=== PATIENT | female | born 1970 | race American Indian/Alaskan Native ===

== ENCOUNTER 2017-03-31 21:06 | Inpatient (IN) | payer OTHER ==
[2017-03-31 22:01] LABS: Mean Corpuscular HGB Conc 26 % (30-34); Platelet Count 553 K/mm3 (140-440); White Blood Count 7.6 K/mm3 (4.5-11.0)
[2017-03-31 22:21] LABS: Hemoglobin 5.2 gm/dl (10.1-14.3); Mean Corpuscular Hemoglobin 17 pg (28-32); Mean Corpuscular Volume 65 fl (79-97)
[2017-03-31 22:22] LABS: Red Cell Distribution Width > 40.0 % (13.2-15.2)
[2017-03-31 22:27] LABS: Anion Gap 17 mmol/L; BUN/Creatinine Ratio 16.66; Blood Urea Nitrogen 10 mg/dL (7-17); Calcium 8.4 mg/dL (8.4-10.2); Carbon Dioxide 23 mmol/L (22-30); Chloride 100.8 mmol/L (98-107); Glucose 97 mg/dL (65-100); Potassium 4.1 mmol/L (3.6-5.0); Sodium 137 mmol/L (137-145)
[2017-03-31 22:47] LABS: Bilirubin,Urine NEG (Negative); Blood,Urine NEG (Negative); Ketones,Urine NEG (Negative); Leukocyte Esterase,Urine NEG (Negative); Mucus,Urine FEW /HPF; Nitrite,Urine NEG (Negative); Protein,Urine <15 mg/dL mg/dL (Negative); Urobilinogen,Urine < 2.0 mg/dL (<2.0)
[2017-03-31 23:14] LABS: Basophils % (Manual) 0 % (0.0-1.8); Blastocytes % (Manual) 0 %; Eosinophils % (Manual) 0 % (0.0-4.3)
[2017-03-31 23:19] LABS: Anisocytosis 2+; Elliptocytes 1+; Microcytosis 2+; Polychromasia 1+; Tear Drop Cells Few
[2017-03-31 23:20] LABS: Diff Status Complete; Large Platelets 1+; Platelet Estimate Consistent w Auto
[2017-04-01] MEDS ORDERED: TYLENOL PO ONE (05:44)
[2017-04-01] MEDS ORDERED: TYLENOL ONE (05:44)
[2017-04-01] MEDS ORDERED: NACL 0.9% 500 ML 500 ML IV ONE ×2 (07:46→11:00)
--- NOTE | 2017-04-01 07:57 | Emergency Department Report ---
HPI - General Chief Complaint: Chest Pain Time Seen by Provider: 04/01/17 07:45 - HPI HPI: This is a 46-year-old -[place] female who presents to the emergency department with a complaint of a one-week history of a headache and some chest discomfort. The headache has been posterior with some radiation down towards the neck. It will happen for 1-2 days at a time and then will go away and then returned. She complains of some nonspecific dizziness and some occasional blurry vision. Otherwise she denies any numbness, paresthesias, slurred speech or any neurological deficits. The chest discomfort as a sore feeling, midsternal, without any radiation. She says that sometimes she will "rub out the pain." She has been taking a moderate amount of BC powder for her symptoms without much relief. She does not have any diagnosed past medical history. She does not have a primary care doctor. No recent travel or sick contacts at home. Patient denies any significant bleeding but does say that she started her menstrual cycle last Saturday but it is not a large amount of blood or a prolonged amount of time. ED Past Medical Hx - Past Medical History Previous Medical History?: No - Surgical History Past Surgical History?: No - Social History Smoking Status: Current Every Day Smoker Substance Use Type: Alcohol - Medications Home Medications: Home Medications Medication Instructions Recorded Confirmed Last Taken Type No Known Home Medications [No 04/01/17 04/01/17 Unknown History Reported Home Medications] ED Review of Systems ROS: Stated complaint: CP/YOST/AIMEE/VOMITING/BODY PAINS Other details as noted in HPI Comment: All other systems reviewed and negative Constitutional: denies: chills, fever Eyes: vision change. denies: eye pain ENT: denies: ear pain, throat pain Respiratory: denies: cough, shortness of breath, wheezing Cardiovascular: chest pain. denies: palpitations Gastrointestinal: denies: nausea, vomiting Genitourinary: denies: dysuria, discharge Musculoskeletal: denies: back pain, joint swelling, arthralgia Skin: denies: rash, lesions Neurological: headache. denies: weakness, numbness Physical Exam - Physical Exam Vital Signs: Vital Signs 03/31/17 04/01/17 04/01/17 21:43 05:40 05:46 Temperature 98.4 F 97.6 F Pulse Rate 89 70 Respiratory 18 18 18 Rate Blood Pressure 141/98 138/94 O2 Sat by Pulse 100 100 Oximetry Physical Exam: GENERAL: The patient is well-developed well-nourished. HEENT: Normocephalic. Atraumatic. Extraocular motions are intact. Patient has moist mucous membranes. Pupils equal reactive to light bilaterally. NECK: Supple. Trachea is midline. CHEST/LUNGS: Clear to auscultation. There is no respiratory distress noted. There is some reproducible tenderness to palpation to the chest wall. HEART/CARDIOVASCULAR: Regular. There is no tachycardia. There is no gallop rub or murmur. ABDOMEN: Abdomen is soft, nontender. Patient has normal bowel sounds. There is no abdominal distention. SKIN: Skin is warm and dry. NEURO: The patient is awake, alert, and oriented. The patient is cooperative. The patient has no focal neurologic deficits. The patient has normal speech. MUSCULOSKELETAL: There is no tenderness or deformity. There is no limitation range of motion. There is no evidence of acute injury. ED Course Vital Signs 03/31/17 04/01/17 04/01/17 21:43 05:40 05:46 Temperature 98.4 F 97.6 F Pulse Rate 89 70 Respiratory 18 18 18 Rate Blood Pressure 141/98 138/94 O2 Sat by Pulse 100 100 Oximetry ED Medical Decision Making - Lab Data Result diagrams: 03/31/17 21:52 03/31/17 21:52 - EKG Data -: EKG Interpreted by Me EKG shows normal: sinus rhythm, axis, intervals, QRS complexes (Q waves to the septal leads), ST-T waves Rate: normal - EKG Data When compared to previous EKG there are: previous EKG unavailable Interpretation: other (Q waves to the septal leads) - Radiology Data Radiology results: report reviewed, image reviewed interpreted by me: Chest x-ray did not show any acute process. Heart is normal shape and size. No effusions. No pneumothorax. No signs of pneumonia seen. CT of the head does not show any acute process including no hemorrhage, mass, shift, diffuse edema or skull fracture. - Medical Decision Making 46-year-old female presents with some one-week history of posterior headache as well as some chest wall discomfort. While the patient denies any past medical history she presents with a hemoglobin of 5.2. A CT of the head was done secondary to a family history of aneurysm and the patient's one-week history of headache but there was no bleed, shift, mass, ischemia or any acute process. EKG is normal without ST elevation IN, dysrhythmia or ischemia. First troponin negative. Patient says that she is on her menstrual cycle but it is not a heavy bleed and there is no other bleeding. 2 units of packed red blood cells were ordered for transfusion. Patient appears to be having some symptomatic anemia. She will be admitted to the hospital for further evaluation and treatment and has been accepted for admission by the hospitalist, Dr. olmos. - Differential Diagnosis subarachnoid, tension headache, migraine, IN, symptomatic anemia Critical Care Time: No Critical care attestation.: If time is entered above; I have spent that time in minutes in the direct care of this critically ill patient, excluding procedure time. ED Disposition Clinical Impression: Symptomatic anemia Headache Qualifiers: Headache type: unspecified Headache chronicity pattern: unspecified pattern Intractability: not intractable Qualified Code(s): R51 - Headache Chest pain Qualifiers: Chest pain type: unspecified Qualified Code(s): R07.9 - Chest pain, unspecified Anemia Qualifiers: Anemia type: unspecified type Qualified Code(s): D64.9 - Anemia, unspecified Disposition: OP ADMITTED IP TO THIS HOSP Is pt being admited?: Yes Does the pt Need Aspirin: No Condition: Stable Instructions: Chest Pain (ED) Referrals: PRIMARY CARE, [Primary Care Provider] - 3-5 Days Time of Disposition: 11:01
--- NOTE | 2017-04-01 08:14 | Admit Criteria Form ---
Admission Criteria Documentation: ANEMIA, IRON DEFICIENCY OR UNSPECIFIED Clinical Indications for Inpatient Care (Place 'X' for any and all applicable criteria): Admission is indicated for ANY ONE of the following(1)(2)(3)(4)(5)(6)(7): [X] I. Inpatient admission required rather than observation care (Also use Anemia, Iron Deficiency or Unspecified: Observation Care guideline as appropriate) because of ANY ONE of the following: [] a) Hemodynamic instability that is severe or persistent [] b) Active bleeding that cannot be rapidly controlled [X] c) CVS symptoms (i.e., dyspnea, chest pain, heart failure) that are severe or persistent [] d) Neurologic symptoms (i.e., cognitive impairment, recurrent syncope or near syncope) that are severe or persistent [] e) Cardiac arrhythmias of immediate concern [] f) Acute peripheral ischemia (e.g., pulseless, cool, mottled, or cyanotic extremity) [] g) High-risk low platelet count [] h) Acute renal failure [] i) Ongoing transfusion for blood loss (greater than 2 units) [] j) IV fluid to replace significant ongoing (eg, >24 hours) losses (> 3 L/m2 per day) [] k) Pulmonary artery catheter monitoring [] l) Supplemental oxygen or respiratory treatments for over 24 hours that are performable only in acute inpatient setting [] m) Immediate inpatient surgery [] n) Other condition, treatment or monitoring requiring inpatient admission [] II Active massive hemorrhage [] III. Active hemolysis with rapidly progressive anemia [A](6) Extended stay beyond goal length of stay may be needed for (17)(18) []a) Diagnosed cause of anemia requiring longer hospitalization (eg, active GI bleeding, immune hemolysis requiring electrophoresis, complications of malignancy requiring acute care []b) Continued emergent anemia indicators (23) []c) Transfusion reactions []d) Associated leukopenia or thrombocytopenia needing inpatient care []e) Active comorbidities (eg, renal failure, heart failure) The original [facility] Care Guidelines content created by [facility] Care Guidelines has been revised. The portions of the content which have been revised are identified through the use of italic text or in bold. [facility] Guidelines has neither reviewed nor approved the modified material. All other unmodified content is copyright [facility] Care Guidelines. Please see references footnoted in the original [facility] edition 2016 Admission Criteria Met: Yes
--- NOTE | 2017-04-01 08:44 | Cat Scan Report ---
CT HEAD WITHOUT CONTRAST INDICATION: Headache. COMPARISON: None similar. FINDINGS: Noncontrast head CT demonstrates normal, symmetric ventricles and sulci without acute or recent infarct, hemorrhage, mass effect or midline shift. No abnormal extra-axial fluid collections. Posterior fossa structures and basilar cisterns are within normal limits. Clear paranasal sinuses and mastoid air cells. Intact calvarium. Normal overlying scalp soft tissues. Edentulous jaw. Earrings. CONCLUSION: No acute intracranial CT abnormality, as described. Thank you for the opportunity to participate in this patient's care.
--- NOTE | 2017-04-01 08:48 | XRay Report ---
CHEST ONE VIEW INDICATION: Chest pain. COMPARISON: None similar. FINDINGS: Portable, single, frontal chest radiograph demonstrates top normal heart size. Normal mediastinal and hilar contours. Clear lungs. Unremarkable bones. Extrinsic EKG leads. CONCLUSION: No acute disease in the chest. Thank you for the opportunity to participate in this patient's care.
--- NOTE | 2017-04-01 09:51 | History and Physical Report ---
History of Present Illness Date of examination: 04/01/17 Date of admission: 04/01/17 Chief complaint: Gen weakness, chest pain, headache History of present illness: Patient is 46-year-old with no significant past medical history. She presents with one-week history of generalized weakness, headache,dizziness, chest pain and epigastric pain. She also complains of heavy menstrual periods with clots for 2 months. Chest pain was 7 out of 10, sharp pain, left part of the chest with no radiation, not associated shortness of breath. Chest pain worse on movement and tender to touch. In ED was found to have a hemoglobin of 5.2. She denies any previous history of anemia or previous blood transfusion. She denies any blood in the stool or any dark stools. She however states that she's been having heavy menstrual periods for the past 2 months with heavy blood clots but has not seen a stripe marker yet. She is being admitted for further management, blood transfusion and evaluation of chest pain. Past History Past Medical History: No medical history Past Surgical History: No surgical history Social history: single, smoking (smokes 4 cigarettes a day), alcohol abuse ( occasionally, about twice a month) Family history: CAD, cancer, hypertension Medications and Allergies Allergies Allergy/AdvReac Type Severity Reaction Status Date / Time No Known Allergies Allergy Unverified 03/31/17 21:43 Home Medications Medication Instructions Recorded Confirmed Last Taken Type No Known Home Medications [No 04/01/17 04/01/17 Unknown History Reported Home Medications] Review of Systems All systems: negative (no fever, no shortness of breath, no cough. Alll other systems reviewed and are negative) Exam - Physical Exam Narrative exam: Appearance: Not in acute distress, lying in bed HEENT: normocephalic, atraumatic Neck : supple, no JVD Lungs: Clear to auscultation bilaterally, no crackles or wheeze Heart : S1 and S2 regular, no murmurs, rubs or gallop Abdomen: soft, non-tender, non-distended, normal bowel sounds Extremities: No edema, no clubbing, no cyanosis Neuro: Awake, alert, oriented 3, moves all ext, no focal neurological signs Psych: Normal mood - Constitutional Vitals: Temp Pulse Resp BP Pulse Ox 97.6 F 70 18 138/94 100 04/01/17 05:40 04/01/17 05:40 05/22/17 05:46 04/01/17 05:40 04/01/17 05:40 Results - Labs CBC & Chem 7: 03/31/17 21:52 03/31/17 21:52 Labs: Abnormal lab results 03/31/17 03/31/17 04/01/17 Range/Units 21:52 21:52 07:59 RBC 3.10 L (3.65-5.03) M/mm3 Hgb 5.2 L* (10.1-14.3) gm/dl Hct 20.0 L (30.3-42.9) % MCV 65 L (79-97) fl MCH 17 L (28-32) pg MCHC 26 L (30-34) % RDW > 40.0 H (13.2-15.2) % Plt Count 553 H (140-440) K/mm3 Creatinine 0.6 L (0.7-1.2) mg/dL Crossmatch See Detail Assessment and Plan Severe Anemia to acute blood loss with hemoglobin of 5.2. Will admit to Telemetry. Will transfuse 3 units PRBC and recheck hemoglobin. Transfuse to keep hemoglobin greater than 7.5. Uterine fibroid. Gyne consulted Chest pain is atypical. Troponins are normal. We'll obtain stress test when stable, probably tomorrow. Menorrhagia. She has been having heavy periods with blood clots for 2 months. Ultrasound shows a mass in the endometrium, possibly fibroid, to rule out malignancy. DVT prophylaxis. SCDs only Full code status.
[2017-04-01] MEDS ORDERED: DULCOLAX PR PRN (10:00)
[2017-04-01] MEDS ORDERED: MILK OF MAGNESIA PO PRN (10:00)
[2017-04-01] MEDS ORDERED: TYLENOL PO PRN (10:00)
--- NOTE | 2017-04-01 11:16 | Ultrasound Report ---
Pelvic and transvaginal sonography: History: Heavy periods. Findings: Uterus joaquín 1.9 x 2.7 x 4.7 cm. Endometrial thickness 17.1 mm. There is 1.5 x 1.4 x 1.2 cm mass identified at the superior aspect of the endometrium. Appears echogenic and well-defined. Right ovary 3.5 x 1.8 x 2.7 cm. Cystic mass in the right ovary measures 2.3 cm. Left 11.6 x 1.4 x 1.3 cm. No mass. Minimal fluid in the cul-de-sac. Impression: Mass in the superior aspect of the endometrium may be submucosal fibroid or intrinsic mass of the endometrium. Carcinoma cannot be excluded. Further evaluation may be recommended.
[2017-04-01] MEDS ORDERED: NACL 0.9% 1000 ML 1,000 ML ONE (12:12)
[2017-04-01] MEDS ORDERED: PROTONIX IV ONE (12:12)
[2017-04-01] MEDS: MORPHINE IV PRN ×2 (12:53→18:15)
[2017-04-01] MEDS: ZOFRAN IV PRN (12:53)
--- NOTE | 2017-04-01 14:35 | Consultation ---
History of Present Illness Consult date: 04/01/17 Requesting physician: NATHAN THRASHER Reason for consult: menorrhagia, other (anemia, uterine mass ) History of present illness: Thank you for this consult. Pt is a 46 year old -[place] female with unsure last menstrual period who initially presented to the emergency room with chest pain, headache, generalized weakness, dizziness, chest pain and epigastric pain. Upon initial laboratory analysis the patient was noted to be severely anemic with a hemoglobin and hematocrit of 22 and 20.0 respectively. Upon further questioning the patient notes that she used to have menses once per month up until about 5 months ago when she began to have menses lasting 5-7 days that were heavy with clots as well as intermenstrual bleeding. The patient is not currently have a turner and former automatic and has not had a pelvic examination or Pap smear in 3-4 years. She denies any history of abnormal Pap smears. Since admission the patient also received a pelvic ultrasound which revealed a uterus that is normal size with an endometrial thickness of 17.1 mm. The uterus also contains a 1.5 x 1.4 x 1.2 cm mass identified at the superior aspect of the endometrium that appears echogenic and well-defined (uterine fibroid versus polyp versus carcinoma). Past History Past Medical History: hypertension Past Surgical History: no surgical history Family/Genetic History: cancer Social history: no significant social history Medications and Allergies Allergies Allergy/AdvReac Type Severity Reaction Status Date / Time No Known Allergies Allergy Unverified 03/31/17 21:43 Home Medications Medication Instructions Recorded Confirmed Last Taken Type No Known Home Medications [No 04/01/17 04/01/17 Unknown History Reported Home Medications] Active Meds: Active Medications Acetaminophen (Tylenol) 650 mg PO Q4H PRN PRN Reason: Pain MILD(1-3)/Fever >100.5/YOST Bisacodyl (Dulcolax) 10 mg AK QDAY PRN PRN Reason: Constipation unrelieved by MOM Magnesium Hydroxide (Milk Of Magnesia) 30 ml PO Q4H PRN PRN Reason: Constipation Morphine Sulfate (Morphine) 2 mg IV Q4H PRN PRN Reason: Pain, Moderate (4-6) Last Admin: 04/01/17 12:53 Dose: 2 mg Ondansetron HCl (Zofran) 4 mg IV Q6H PRN PRN Reason: nausea or vomiting Last Admin: 04/01/17 12:53 Dose: 4 mg Pantoprazole Sodium (Protonix) 40 mg PO QDAY ABDIEL Review of Systems All systems: negative Constitutional: weakness Cardiovascular: chest pain Genitourinary: vaginal bleeding (per HPI) Neurological: headaches - Vital Signs Vital signs: Vital Signs Temp Pulse Resp BP Pulse Ox 98.4 F 89 18 141/98 100 03/31/17 21:43 03/31/17 21:43 03/31/17 21:43 03/31/17 21:43 03/31/17 21:43 Temp Pulse Resp BP Pulse Ox 98.0 F 75 19 126/82 100 04/01/17 14:06 04/01/17 14:21 04/01/17 14:21 04/01/17 14:21 04/01/17 14:21 - Physical Exam Breasts: Positive: deferred Cardiovascular: Regular rate Lungs: Positive: Clear to auscultation Abdomen: Positive: soft Extremities: Positive: normal Results Result Diagrams: 03/31/17 21:52 03/31/17 21:52 All other labs normal. Assessment and Plan A: Symptomatic Anemia Dysfunctional Uterine Bleeding Intrauterine mass P: This patient's gynecologic issues are nonemergent and may be addressed once this patient has been stabilized medically and discharge from the hospital. As she has no turner and former automatic currently, I'm happy to see her in the office to perform a Pap smear, endometrial biopsy and sonohysterogram as indicated. Once these studies are completed, there will be further discussion regarding definitive treatment of her dysfunctional uterine bleeding. Please feel free to reconsult during her hospitalization with any concerns. Again thank you for the consult.
[2017-04-01] MEDS ORDERED: SODIUM CHLORIDE FLUSH SYRINGE 10 ML IV PRN (15:44)
[2017-04-01] MEDS ORDERED: NACL 0.9% 500 ML 500 ML ONE (17:11)
[2017-04-01] MEDS: PROTONIX PO SCH (17:19)
[2017-04-01] MEDS ORDERED: FLUARIX QUAD 2016-2017(36 MOS+) IM ONE (20:37)
[2017-04-02 07:36] LABS: Red Blood Count 3.86 M/mm3 (3.65-5.03); White Blood Count 6.6 K/mm3 (4.5-11.0)
[2017-04-02 07:37] LABS: Hematocrit 27.4 % (30.3-42.9); Hemoglobin 8.3 gm/dl (10.1-14.3); Mean Corpuscular HGB Conc 30 % (30-34); Mean Corpuscular Hemoglobin 21 pg (28-32); Mean Corpuscular Volume 71 fl (79-97); Platelet Count 595 K/mm3 (140-440); Red Cell Distribution Width 37.8 % (13.2-15.2)
[2017-04-02 07:49] LABS: Anion Gap 17 mmol/L; BUN/Creatinine Ratio 13.33; Blood Urea Nitrogen 8 mg/dL (7-17); Calcium 8.1 mg/dL (8.4-10.2); Carbon Dioxide 25 mmol/L (22-30); Chloride 103.3 mmol/L (98-107); Glucose 92 mg/dL (65-100); Potassium 4.4 mmol/L (3.6-5.0); Sodium 141 mmol/L (137-145)
[2017-04-02 09:12] LABS: Blastocytes % (Manual) 0 %
[2017-04-02 09:13] LABS: Anisocytosis 3+; Hypochromasia 2+; Polychromasia Few
[2017-04-02 09:14] LABS: Diff Status Complete; Elliptocytes Rare; Large Platelets Few; Platelet Estimate Appears Increased; Tear Drop Cells Few
--- NOTE | 2017-04-02 10:50 | Discharge Summary ---
Providers - Providers Date of Admission: 04/01/17 09:51 Date of discharge: 04/02/17 Attending physician: NATHAN THRASHER 04/01/17 Consult to Cardiac Rehabilitation [CONS] Routine Reason For Exam: Phase I 04/01/17 09:55 Consult to Physician [CONS] Routine Consulting Provider: GUERLINE DIANA Reason For Exam: heavy periods, Hgb 5.2 Place consult to:: answering service Notified:: yes Phone number called:: [phone] Was contact made?: Yes If yes, spoke with:: Katt Time called:: 12:32 Primary care physician: DELIVERER MERCHANDISE Hospitalization Condition: Stable Disposition: STILL A PATIENT Core Measure Documentation - Palliative Care Palliative Care/ Comfort Measures: Not Applicable Exam - Constitutional Vitals: Temp Pulse Resp BP Pulse Ox 97.8 F 59 L 18 126/78 98 04/02/17 04:00 04/02/17 09:07 04/02/17 07:12 04/02/17 07:12 04/02/17 07:12 Plan Activity: no restrictions Diet: regular Additional Instructions: 1.Follow up with PCP in 1 week. 2.Follow up with Dk Bello in 1 week Follow up with: PRIMARY CAREMD [Primary Care Provider] - 3-5 Days Prescriptions: Docusate Sodium [Colace] 100 mg PO BID #60 capsule Famotidine [Pepcid] 20 mg PO BID #60 tablet Ferrous Sulfate [Feosol 325 MG tab] 325 mg PO BID #60 tablet
[2017-04-02 11:01] VITALS: BP 122/79
[2017-04-02] MEDS: PROTONIX PO SCH (11:48)
[2017-04-02] MEDS: MORPHINE IV PRN (11:53)
[2017-04-02] MEDS: ZOFRAN IV PRN (11:53)
[2017-04-02] MEDS ORDERED: FLUARIX QUAD 2016-2017(36 MOS+) IM ONE (12:00)
--- NOTE | 2017-04-03 03:19 | Treadmill Report ---
MYOCARDIAL PERFUSION IMAGING STUDIES This patient was given sistamibi after walking on the treadmill as per [facility]ora protocol completing 10 minutes. Resting images were obtained before this. SPECT images revealed homogeneous radioisotope distribution on the resting images as well as post-exercise images. Ejection fraction was noted to be normal at 58%. There was no transient ischemic dilatation noted. Right ventricle appeared normal. IMPRESSION: 1. This test is negative for ischemia. 2. Normal left ventricular systolic function. JOB# [id number] JOSE/OLGA GUERRA
== END 2017-04-02 13:27 | disposition home or self-care (01) | DRG 812 ==
LOC: ED 21:06 → 4A 04-01 09:51
PROVIDERS: ADMIT Internal Medicine; ATTEND Internal Medicine
PROC: 30233N1 Transfusion of Nonautologous Red Blood Cells into Peripheral Vein, Percutaneous Approach (ICD-10-PCS; principal; 2017-04-01)
DX: D62 Acute posthemorrhagic anemia (principal); R07.89 Other chest pain; N92.0 Excessive and frequent menstruation with regular cycle; F17.210 Nicotine dependence, cigarettes, uncomplicated; F10.10 Alcohol abuse, uncomplicated; Z82.49 Family history of ischemic heart disease and other diseases of the circulatory system; Z80.9 Family history of malignant neoplasm, unspecified; D25.9 Leiomyoma of uterus, unspecified; I10 Essential (primary) hypertension; N93.8 Other specified abnormal uterine and vaginal bleeding
CPT/HCPCS: 36415; 70450; 71010; 76830; 76856; 78452; 80048; 81001; 81025; 84484; 85007; 85025; 86850; 86900; 86901; 86920; 90686; 93005; 93010; 93017; A9502; C9113; J2270; J2405; J7030; J7040; P9016